=== PATIENT | male | born 1980 | race American Indian/Alaskan Native ===

== ENCOUNTER 2019-02-24 00:39 | Emergency (ER) | payer BC ==
--- NOTE | 2019-02-24 01:35 | Emergency Department Report ---
HPI - General Chief Complaint: Wound/Laceration Time Seen by Provider: 02/24/19 01:19 - [facility] HPI: Room 25 The patient is a 38-year-old male presenting with a chief complaint head injury. The patient states this evening he tripped and fell striking his head. Patient denies loss of consciousness. Patient has a laceration to the top of the skull Location: Head Duration: [See above] Quality: [See above] Severity: [See above] Modifying factors: [see above] Context: [see above] Mode of transportation: [not driving] ED Past Medical Hx - Past Medical History Previous Medical History?: No Hx Asthma: Yes - Surgical History Past Surgical History?: No - Family History Family history: no significant - Social History Smoking Status: Light Tobacco Smoker Substance Use Type: None (denies illicit drug use), Alcohol - Medications Home Medications: Home Medications Medication Instructions Recorded Confirmed Last Taken Type Triamcinolone 0.025% [Kenalog 1 applic TP TID #1 tube 09/28/13 Unknown Rx 0.025% CREAM] cephALEXin [Keflex] 500 mg PO Q6H #5 capsule 09/28/13 Unknown Rx oxyCODONE /ACETAMINOPHEN [Percocet 1 tab PO Q6HR PRN #15 tablet 09/28/13 Unknown Rx 5/325 mg] ED Review of Systems ROS: Stated complaint: HEAD LACERATION/FALL Other details as noted in HPI Neurological: headache Physical Exam - Physical Exam Vital Signs: Vital Signs 02/24/19 01:18 Temperature 98.3 F Pulse Rate 94 H Respiratory 18 Rate Blood Pressure 143/73 O2 Sat by Pulse 99 Oximetry Physical Exam: GENERAL: The patient is well-developed well-nourished male standing in room holding pressure to the top of his head does not appear to be in acute distress. [] HEENT: Normocephalic. Atraumatic. Extraocular motions are intact. Patient has moist mucous membranes. NECK: Supple. No axial tenderness to palpation. No adnexal stable CHEST/LUNGS: Clear to auscultation. There is no respiratory distress noted. HEART/CARDIOVASCULAR: Regular. There is no tachycardia. There is no gallop rub or murmur. ABDOMEN: Abdomen is soft, nontender. Patient has normal bowel sounds. There is no abdominal distention. SKIN: There is an approximately 5 cm linear laceration to the top of the head. There is no edema. There is no diaphoresis. NEURO: The patient is awake, alert, and oriented. The patient is cooperative. The patient has no focal neurologic deficits. The patient has normal speech and gait. MUSCULOSKELETAL: There is no limitation range of motion. ED Course Vital Signs 02/24/19 01:18 Temperature 98.3 F Pulse Rate 94 H Respiratory 18 Rate Blood Pressure 143/73 O2 Sat by Pulse 99 Oximetry - Reevaluation(s) Reevaluation #1: 02/24/19 02:47 Patient now agrees to allow CT scan to be performed - Laceration /Wound Repair Head Wound Location: head Wound Length (cm): 5 Wound's Depth, Shape: linear Wound Explored: clean Betadine Prep?: Yes Anesthesia: 1% Lidocaine Volume Anesthetic (ccs): 10 Number of Sutures: 8 (Jalen) Layer Closure?: No ED Medical Decision Making - Lab Data Result diagrams: 02/24/19 01:56 02/24/19 01:56 Laboratory Tests 02/24/19 02/24/19 02/24/19 01:56 01:56 01:56 WBC 5.2 RBC 4.69 Hgb 15.7 H Hct 46.0 H MCV 98 H MCH 33 H MCHC 34 RDW 13.4 Plt Count 336 Lymph % (Auto) 38.6 H [place] % (Auto) 5.6 Eos % (Auto) 3.9 Baso % (Auto) 0.6 Lymph # 2.0 [place] # 0.3 Eos # 0.2 Baso # 0.0 Seg Neutrophils % 51.3 Seg Neutrophils # 2.7 Sodium 141 Potassium 4.1 Chloride 104.2 Carbon Dioxide 21 L Anion Gap 20 BUN 10 Creatinine 0.8 Estimated GFR > 60 BUN/Creatinine Ratio 13 Glucose 112 H Calcium 9.1 Plasma/Serum Alcohol 0.21 H - Radiology Data Radiology results: report reviewed (CT head, CT cervical spine), image reviewed (CT head, CT cervical spine) [facility] [address] [place] [address] Cat Scan Report Signed Patient: MARISA MONSIVAIS V MR#: [id number] [birth year] : 1980 Acct:[id number] Age/Sex: 38 / M ADM Date: 02/24/19 Loc: ED Attending Dr: Ordering Physician: EDOUARD CH MD Date of Service: 02/24/19 Procedure(s): CT head/brain wo con Accession Number(s): [id number] cc: EDOUARD CH MD PROCEDURE: CT HEAD/BRAIN WO CON TECHNIQUE: Routine axial imaging was obtained of the brain without IV contrast. HISTORY: fall with head injury, intoxicated COMPARISONS: None FINDINGS: There is a scalp injury along the left superior frontal region of the skull without skull fracture. Intracranially there is no evidence of hemorrhage or infarct. The ventricular system is appropriate in size. The basal cisterns appear normal. The visualized sinuses are clear. IMPRESSION: Scalp injury along the left superior frontal region of the skull without fracture. No acute intracranial injury otherwise.. This document is electronically signed by Jona Mueller MD., February 24 2019 03:26:17 AM ET Transcribed By: RB Dictated By: JONA MUELLER MD Electronically Authenticated By: JONA MUELLER MD Signed Date/Time: 02/24/19 0328 DD/ 0246 TD/TT: 02/24/19 0319 - Differential Diagnosis closed head injury, scalp laceration Critical care attestation.: If time is entered above; I have spent that time in minutes in the direct care of this critically ill patient, excluding procedure time. ED Disposition Clinical Impression: Closed head injury, Scalp laceration, Alcohol intoxication Disposition: DC-01 TO HOME OR SELFCARE Is pt being admited?: No Does the pt Need Aspirin: No Condition: Stable Time of Disposition: 04:08 (d/c tofamily or when etoh <0.08)
[2019-02-24 02:14] LABS: Basophils % (Auto) 0.6 % (0.0-1.8); Eosinophils # (Auto) 0.2 K/mm3 (0.0-0.4); Eosinophils % (Auto) 3.9 % (0.0-4.3); Hemoglobin 15.7 gm/dl (11.8-15.2); Lymphocytes % (Auto) 38.6 % (13.4-35.0); Mean Corpuscular HGB Conc 34 % (32-34); Mean Corpuscular Volume 98 fl (84-94); Monocytes # (Auto) 0.3 K/mm3 (0.0-0.8); Monocytes % (Auto) 5.6 % (0.0-7.3); Platelet Count 336 K/mm3 (140-440); Red Blood Count 4.69 M/mm3 (3.65-5.03); Red Cell Distribution Width 13.4 % (13.2-15.2)
[2019-02-24 02:33] LABS: BUN/Creatinine Ratio 13; Blood Urea Nitrogen 10 mg/dL (9-20); Calcium 9.1 mg/dL (8.4-10.2); Hemolysis Index 9
--- NOTE | 2019-02-24 03:28 | Cat Scan Report ---
PROCEDURE: CT HEAD/BRAIN WO CON TECHNIQUE: Routine axial imaging was obtained of the brain without IV contrast. HISTORY: fall with head injury, intoxicated COMPARISONS: None FINDINGS: There is a scalp injury along the left superior frontal region of the skull without skull fracture. I ntracranially there is no evidence of hemorrhage or infarct. The ventricular system is appropriate in size. The basal cisterns appear normal. The visualized sinuses are clear. IMPRESSION: Scalp injury along the left superior frontal region of the skull without fracture. No acute intracran ial injury otherwise.. This document is electronically signed by Dallin Mueller MD., February 24 2019 03:26:17 AM ET
--- NOTE | 2019-02-24 03:45 | Cat Scan Report ---
PROCEDURE: CT CERVICAL SPINE WO CON TECHNIQUE: Routine axial imaging was obtained of the cervical spine without IV contrast with sagitta l and coronal reconstructions. HISTORY: fall with head injury, intoxicated COMPARISONS: None FINDINGS: There is moderate narrowing of the C6-C7 discs with endplate spurring. The upper cervical disc are no rmal in height and alignment. The canal size is normal. The facet joints appear normal. There is no e vidence of fracture. The prevertebral soft tissues appear normal. The C1-C2 articulation appears inta ct. 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 No acute injury.. This document is electronically signed by Dallin Mueller MD., February 24 2019 03:44:18 AM ET
[2019-02-24] MEDS ORDERED: XYLOCAINE 1% 20 mL ONE (03:51)
[2019-02-24] MEDS ORDERED: NACL 0.9% 500 ML IR ONE (03:51)
[2019-02-24 12:26] VITALS: BP 132/74
== END 2019-02-24 12:24 | disposition home or self-care (01) ==
LOC: ED 00:39
DX: S01.01XA Laceration without foreign body of scalp, initial encounter (principal); F10.129 Alcohol abuse with intoxication, unspecified; J45.909 Unspecified asthma, uncomplicated; F17.200 Nicotine dependence, unspecified, uncomplicated; Z79.899 Other long term (current) drug therapy; W01.10XA Fall on same level from slipping, tripping and stumbling with subsequent striking against unspecified object, initial encounter; Y93.89 Activity, other specified; Y92.89 Other specified places as the place of occurrence of the external cause; Y99.8 Other external cause status
CPT/HCPCS: 12002; 36415; 70450; 72125; 80048; 85025; 99284; G0480; 80320

== ENCOUNTER 2019-12-16 09:28 | Emergency (ER) | payer BC ==
[2019-12-16 09:34] VITALS: BP 166/85
--- NOTE | 2019-12-16 11:25 | Emergency Department Report ---
ED Rash HPI - HPI Chief Complaint: Skin Rash Stated Complaint: SKIN ISSUE, RASH Time Seen by Provider: 12/16/19 11:20 Location: Other Rash Symptoms: Yes Itching, No Facial Swelling, No Tongue/Oral Swelling, No Breathing Difficulties, No Choking Sensation, No Peeling, No Blistering, No Fever, No Lightheaded, No Malaise, No Myalgias Severity: mild Other History: 39 YO COMES TO ER WITH RASH ON LEGS AND HANDS. THESE ARE CHRONIC IN NATURE BUT DUE TO INSURANCE ISSUES HE HAS BEEN UNABLE TO GET NEW PCP APPNT. HE HAS WORSENING RASH ON LEGS AND REQUESTS REFILL OF MEDS. HE STATES IN THE PAST WHEN THESE WERE NOT TREATED THEY GOT INFECTED HE ENDED UP IN THE HOSPITAL. ED Review of Systems ROS: Stated complaint: SKIN ISSUE, RASH Other details as noted in HPI Comment: All other systems reviewed and negative ED Past Medical Hx - Past Medical History Previous Medical History?: Yes Hx Asthma: Yes Additional medical history: Eczema - Surgical History Past Surgical History?: No - Family History Family history: no significant - Social History Smoking Status: Never Smoker Substance Use Type: None - Medications Home Medications: Home Medications Medication Instructions Recorded Confirmed Last Taken Type Clotrimazole 1% [Lotrimin 1%] 1 applic TP BID #1 tube 12/16/19 Unknown Rx Triamcinolone 0.025% [Kenalog 1 applic TP TID #1 tube 12/16/19 Unknown Rx 0.025% CREAM] Triamcinolone 0.1% [Kenalog 0.1% 1 applic TP TID #1 tube 12/16/19 Unknown Rx CREAM] Rash Exam - Exam General: Vital signs noted. No distress. Alert and acting appropriately. HEENT: No Periorbital Edema, No Conjuctival Injection, No Chemosis, No Perioral Edema, No Tongue Edema, No Uvular Edema, No Compromised Airway, No Drooling Lungs: Yes Good Air Exchange (Normal Breath Sounds), No Wheezes, No Ronchi, No Stridor, No Cough, No Labored Respirations, No Retractions, No Use of Accessory Muscles, No Other Abnormal Lung Sounds Heart: Yes Regular, No Murmur Skin: Yes Other (FUNGAL APPEARING RASH ON HANDS. ECZEMA ON ELBOWS. AREAS OF PURUITIC LESIONS ON LEGS- CAN NOT TELL ME WHAT LESION LOOKED LIKE TO START) Other: Positive: Abdomen Normal, Neurologic Normal, Musculoskeletal Normal ED Course Vital Signs 12/16/19 09:31 Temperature 98.4 F Pulse Rate 87 Respiratory 16 Rate Blood Pressure 166/85 O2 Sat by Pulse 96 Oximetry ED Medical Decision Making - Medical Decision Making ABC INTACT VSS DC HOME WITH RX AND PCP REFERRAL AND FOLLOW UP Vital Signs 12/16/19 09:31 Temperature 98.4 F Pulse Rate 87 Respiratory 16 Rate Blood Pressure 166/85 O2 Sat by Pulse 96 Oximetry - Differential Diagnosis RASH Critical care attestation.: If time is entered above; I have spent that time in minutes in the direct care of this critically ill patient, excluding procedure time. ED Disposition Clinical Impression: Eczema, Ringworm Disposition: DC-01 TO HOME OR SELFCARE Is pt being admited?: No Does the pt Need Aspirin: No Condition: Stable Additional Instructions: FOLLOW UP WITH PCP REFERRAL BELOW Prescriptions: Triamcinolone 0.025% [Kenalog 0.025% CREAM] 1 applic TP TID #1 tube Triamcinolone 0.1% [Kenalog 0.1% CREAM] 1 applic TP TID #1 tube Clotrimazole 1% [Lotrimin 1%] 1 applic TP BID #1 tube Referrals: MARIA GUADALUPE GODFREY MD [Staff Physician] - 3-5 Days Time of Disposition: 11:22
== END 2019-12-16 11:36 | disposition home or self-care (01) ==
LOC: ED 09:28
DX: L30.9 Dermatitis, unspecified (principal); B35.9 Dermatophytosis, unspecified; J45.909 Unspecified asthma, uncomplicated; Z79.899 Other long term (current) drug therapy
CPT/HCPCS: 99281